=== PATIENT | female | born 2000 | race Caucasian/White ===

== ENCOUNTER 2023-03-10 21:43 | Observation (INO) | payer MEDICARE, OTHER ==
[~2023-03-10] VITALS: Ht 165.1 cm; Wt 95.0 kg
[2023-03-10] MEDS ORDERED: SEROQUEL100 MG PO (22:00)
[2023-03-10] MEDS ORDERED: ZIPRASIDONE HCL20 M1 PO (22:01)
[2023-03-10] MEDS ORDERED: FOLI1 PO (22:01)
[2023-03-10 22:17] LABS: BASOPHILS ABSOLUTE AUTO 0.06 K/mm3 (0.00-0.23); BASOPHILS PERCENT AUTO 1 % (0-2); EOSINOPHILS ABSOLUTE AUTO 0.12 K/mm3 (0.00-0.68); EOSINOPHILS PERCENT AUTO 1 % (0-6); Hematocrit 42.5 % (33.0-51.0); Hemoglobin 13.9 g/dL (11.5-16.0); IMMATURE GRAN ABSOLUTE AUTO 0.05 K/mm3 (0.00-0.10); IMMATURE GRAN PERCENT AUTO 1 % (0-1); LYMPHOCYTES ABSOLUTE AUTO 2.53 K/mm3 (0.84-5.20); LYMPHOCYTES PERCENT AUTO 25 % (21-46); MONOCYTES ABSOLUTE AUTO 0.67 K/mm3 (0.16-1.47); MONOCYTES PERCENT AUTO 7 % (4-13); Mean Corpuscular HGB 31.2 pg (26.0-34.0); Mean Corpuscular HGB Conc 32.7 g/dL (31.5-36.5); Mean Corpuscular Volume 96 fL (80-100); Mean Platelet Volume 10.1 fL (9.1-12.4); NEUTROPHILS ABSOLUTE AUTO 6.67 K/mm3 (1.96-9.15); NEUTROPHILS PERCENT AUTO 66 % (41-73); Platelet Count 197 K/mm3 (150-400); RDW Coefficient Variation 11.5 % (11.7-14.2); RDW Standard Deviation 40.1 fL (35.1-46.3); Red Blood Cell Count 4.45 M/mm3 (3.80-5.20)
[2023-03-10 22:42] LABS: Ethanol (Alcohol), Blood, Med <3 mg/dL; Salicylate <1.7 mg/dL (2.8-20.0); Thyroxine (T4) 8.9 ug/dL (4.8-13.9)
[2023-03-10 22:46] LABS: Alanine Aminotransfer (ALT/SGP 21 U/L (12-78); Albumin, Blood 3.6 g/dL (3.4-5.0); Albumin/Globulin Ratio 0.9 (0.8-1.8); Alk Phos 115 U/L (50-136); Anion Gap 5 mmol/L (6-16); Aspartate Aminotrans (AST/SGOT 25 U/L (12-37); Bilirubin, Total 0.2 mg/dL (0.1-1.0); Blood Urea Nitrogen 21 mg/dL (8-24); Bun/Creatinine Ratio 25.5 (12.0-20.0); CO2, Blood 25 mmol/L (21-32); Calcium, Blood 9.1 mg/dL (8.5-10.1); Chloride, Blood 108 mmol/L (98-108); Creatinine, Blood 0.83 mg/dL (0.40-1.00); Globulin, Blood 4.1 g/dL (2.2-4.0); Glomerular Filtration Rate 103 (60-); Glucose, Blood 107 mg/dL (70-99); Potassium, Blood 4.2 mmol/L (3.5-5.5); Sodium, Blood 138 mmol/L (136-145); Total Protein, Blood 7.7 g/dL (6.4-8.2)
[2023-03-10 22:47] LABS: Acetaminophen, Random <2.0 ug/mL (10.0-30.0)
[2023-03-11] VITALS (20 sets, daily range): BP systolic 88–111; BP diastolic 57–71
[2023-03-11 02:25] LABS: Albumin, Blood 3.6 g/dL (3.4-5.0); Albumin/Globulin Ratio 0.9 (0.8-1.8); Bilirubin, Total 0.3 mg/dL (0.1-1.0); Bun/Creatinine Ratio 26.5 (12.0-20.0); Calcium, Blood 9.4 mg/dL (8.5-10.1); Creatinine, Blood 0.72 mg/dL (0.40-1.00); Globulin, Blood 4.1 g/dL (2.2-4.0); Potassium, Blood 4.7 mmol/L (3.5-5.5); Total Protein, Blood 7.7 g/dL (6.4-8.2)
[2023-03-11 04:34] LABS: BASOPHILS ABSOLUTE AUTO 0.03 K/mm3 (0.00-0.23); BASOPHILS PERCENT AUTO 0 % (0-2); EOSINOPHILS ABSOLUTE AUTO 0.14 K/mm3 (0.00-0.68); EOSINOPHILS PERCENT AUTO 2 % (0-6); Hemoglobin 13.8 g/dL (11.5-16.0); IMMATURE GRAN ABSOLUTE AUTO 0.05 K/mm3 (0.00-0.10); IMMATURE GRAN PERCENT AUTO 1 % (0-1); LYMPHOCYTES ABSOLUTE AUTO 2.57 K/mm3 (0.84-5.20); LYMPHOCYTES PERCENT AUTO 30 % (21-46); MONOCYTES ABSOLUTE AUTO 0.57 K/mm3 (0.16-1.47); MONOCYTES PERCENT AUTO 7 % (4-13); Mean Corpuscular HGB 31.2 pg (26.0-34.0); Mean Corpuscular HGB Conc 33.7 g/dL (31.5-36.5); Mean Corpuscular Volume 93 fL (80-100); Mean Platelet Volume 10.5 fL (9.1-12.4); NEUTROPHILS ABSOLUTE AUTO 5.15 K/mm3 (1.96-9.15); NEUTROPHILS PERCENT AUTO 61 % (41-73); Platelet Count 209 K/mm3 (150-400); RDW Coefficient Variation 11.5 % (11.7-14.2); RDW Standard Deviation 39.3 fL (35.1-46.3); Red Blood Cell Count 4.43 M/mm3 (3.80-5.20); White Blood Cell Count 8.51 K/mm3 (4.00-11.30)
[2023-03-11 04:37] LABS: Base Excess Venous 0.3 mmol/L; Bicarbonate Venous 24.2 mmol/L (24.0-30.0); PCO2 Venous 47.2 mmHg (38-42); pH Blood Venous 7.35 (7.34-7.37)
[2023-03-11 04:53] LABS: Albumin, Blood 3.5 g/dL (3.4-5.0); Albumin/Globulin Ratio 0.9 (0.8-1.8); Bilirubin, Total 0.3 mg/dL (0.1-1.0); Bun/Creatinine Ratio 26.4 (12.0-20.0); Calcium, Blood 9.2 mg/dL (8.5-10.1); Creatinine, Blood 0.72 mg/dL (0.40-1.00); Total Protein, Blood 7.5 g/dL (6.4-8.2)
--- NOTE | 2023-03-11 08:14 | NUR ---
ADMIT PT ARRIVED TO ICU 3 AT 0745. PT RESTING WITH HER EYES CLOSED, BUT OPENS EYES AND RESPONDS SOFTLY WHEN ASKED QUESTIONS. CLOSES HER EYES AND GOES BACK TO SLEEP WHEN UNSTIMULATED. PT ORIENTED TO PERSON AND PLACE. ON CPAP FOR APNEIC EPISODES IN THE ED. IV FLUDIS INFUSING. 1:1 OBSERVATION FOR SAFETY.
--- NOTE | 2023-03-11 12:32 | NUR ---
REASSESSMENT PT HAS BEEN SLEEPING THIS MORNING UNLESS WOKEN UP. ALERT ENOUGH TO EAT LUNCH, NOTIFIED AND GAVE DIET ORDER. PSYCHIATRIST CAME AND PLACED PT ON HOLD. CIVIL RIGHTS READ TO PT. PT CHECKED BOX FOR [employer] SO THE NUMBER FOR THE LOSS PREVENTION AUDITOR PROVIDED. LUNGS REMAIN CLEAR. PT OFF CPAP SINCE GETTING UP TO USE THE RESTROOM. RA. SR, BP STABLE. PT'S STEPMOTHER CALLED AND WAS GIVEN UPDATE WITH PT'S CONSENT.
[2023-03-11 13:24] LABS: Bun/Creatinine Ratio 20.1 (12.0-20.0); Creatinine, Blood 0.8 mg/dL (0.40-1.00); Magnesium, Blood 1.7 mg/dL (1.6-2.4); Potassium, Blood 3.7 mmol/L (3.5-5.5)
--- NOTE | 2023-03-11 16:46 | NUR ---
SHIFT SUMMARY PT HAS CONTINUED TO SLEEP UNLESS WOKEN UP. THEY ATE LUNCH AND THEN WENT BACK TO SLEEP, NOW REQUIRING TACTILE STIMULI TO WAKE UP. RR REMAIN AROUND 18, SPO2 IN THE HIGH 90S ON RA. SR IN THE 80S, BUT HAS HAD A COUPLE FEW SECOND RUNS OF SVT IN THE 120S. BP STABLE WITH MAP ABOVE 65. LUNGS CLEAR. ELECTROLYTES REPORTED TO DR. BOOGIE AND REPLACEMENT ORDERED. PT ATE DOUBLE PORTIONS OF LUNCH BEFORE FALLING BACK ASLEEP THIS AFTERNOON. PT'S MOTHER CALLED AND WAS UPDATED. CONTINUING TO MONITOR.
--- NOTE | 2023-03-11 19:24 | NUR ---
ASSUMED CARE OF PT AT 1900 PT SLEEPING IN BED DURING BEDSIDE SHIFT REPORT. VITALS WNL FOR PT. BED IN LOW POSITION. 1:1 SITTER AT DOOR. SEE FULL ASSESSMENT FOR FURTHER INFORMATION.
--- NOTE | 2023-03-11 22:04 | NUR ---
SPOKE WITH PT FATHER ESPERANZA CALHOUN OVER THE PHONE. FATHER IS LOCATED IN [facility]. ESPERANZA IS GOING TO TRY TO MAKE IT TO VISIT PT TOMORROW 03/12/23.
[2023-03-12] VITALS (10 sets, daily range): BP systolic 95–124; BP diastolic 60–72
[2023-03-12 05:01] LABS: Calcium, Blood 8.7 mg/dL (8.5-10.1); Creatinine, Blood 0.83 mg/dL (0.40-1.00); Potassium, Blood 4.2 mmol/L (3.5-5.5)
--- NOTE | 2023-03-12 05:19 | NUR ---
SHIFT SUMMARY PT WAKENS WHEN SPOKEN TO BUT DOES NOT OPEN EYES UNTIL ASKED TO. USED TOILET WITH STAND BY ASSIST. STABLE ON FEET. CONTINUES SR WITHOUT ECTOPY NOTED. NS AT 75 MLS/HR THROUGHOUT SHIFT. NO APNEIC EPISODES ALL NIGHT WITHOUT CPAP. PT REFUSED CPAP OFFERED EARLIER IN SHIFT. 1:1 SITTER AT DOOR THIS SHIFT. BED IN LOW POSITION. MONITORING UNTIL REPORT GIVENT AM ABDIFATAH.
--- NOTE | 2023-03-12 18:37 | NUR ---
SUMMARY PT RESTING IN BED. DENIES SUICIDAL IDEATION TODAY. HAS BEEN APPROPRIATE AND COOPERATIVE WITH CARE. STILL HAS 1:1 SITTER FOR SAFETY. OOB AND STEADY ON FEET. NO ACUTE CHANGES.
[2023-03-13 00:44] VITALS: BP 124/76
--- NOTE | 2023-03-13 05:25 | NUR ---
SHIFT SUMMERY PT HAS BEEN AWAKE MOST OF THE NIGHT. HE HAS BEEN VERY TALKATIVE AND HAS WRITTEN SEVERAL NOTES TO VARIOUS PEOPLE. PT STATED THAT HE WANTED TO GO HOME. I EDUCATED PT ON THE ORDER FOR 2 MD HOLD AT THIS TIME. PT VERBALIZED UNDERSTANDING. PT HAS HAD 1:1 SITTER. PT HAS HAD NO ACUTE DISTRESS OR CHANGES OVERNIGHT, VS HAVE BEEN STABLE.
[2023-03-13 06:23] VITALS: BP 108/73
[2023-03-13 08:36] VITALS: BP 107/65
[2023-03-13 18:16] VITALS: BP 109/71
--- NOTE | 2023-03-13 18:41 | NUR ---
SUMMARY PT WAS AGITATED THIS AM ABOUT WANTING TO GO HOME AND WAS SUPPOSED TO BE GOING TO INPT PSYCH FACILITY. AFTER DR. MARTINEZ SAW PT HE DECIDED PT DOES NOT NEED INPT PSYCH AND WILL D/C HIM TOMORROW. AFTER THIS DECISION WAS MADE PT WAS COOPERATIVE WITH CARE AGAIN AND BEING KIND TO STAFF. NO ACUTE CHANGES THIS SHIFT. 1:1 SITTER AND HOLD CONTINUES UNTIL TOMORROW PER DR. MARTINEZ.
--- NOTE | 2023-03-13 19:00 | NUR ---
ASSUMED CARE OF PT AT 1900 PT RESTING IN BED DURING BEDSIDE SHIFT REPORT. VITALS WNL. BED IN LOW POSITION. CALL LIGHT WITHIN REACH. 1:1 SITTER AT DOOR.
[2023-03-13 19:10] VITALS: BP 113/77
--- NOTE | 2023-03-14 06:31 | NUR ---
SHIFT SUMMARY PT SLEPT THIS SHIFT WITH MINIMAL INTERUPTION. VITALS WNL. NO ACUTE CHANGES TO REPORT. MONITORING UNTIL REPORT GIVEN TO AM RN.
[2023-03-14 08:59] VITALS: BP 107/69
[2023-03-14] MEDS ORDERED: LAMICTAL25 M1 PO (11:45)
--- NOTE | 2023-03-14 12:29 | NUR ---
DISCHARGE DISCHARGE MEDICATIONS REVIEWED WITH PATIENT AND INSTRUCTIONS/FOLLOW UP APPOINTMENTS. ALL QUESTIONS ANSWERED AND PIV REMOVED. DISCHARGE PACKET GIVEN TO PATIENT. NO EVENTS DURING SHIFT. VSS.
[2023-03-14 12:31] VITALS: BP 118/78
== END 2023-03-14 13:00 | disposition home or self-care (01) ==
LOC: ER 21:43 → ERHOLD 21:44 → ICUE 21:44 → ER 03-11 01:55 → ERHOLD 03-11 01:55 → ICUE 03-11 05:00
PROVIDERS: Emergency Medicine; Internal Medicine; ADMIT Internal Medicine
DX: F32.9 Major depressive disorder, single episode, unspecified (principal); T43.592A Poisoning by other antipsychotics and neuroleptics, intentional self-harm, initial encounter; R45.851 Suicidal ideations; Y92.9 Unspecified place or not applicable
CPT/HCPCS: 36415; 80048; 80053; 82803; 83735; 84436; 84443; 84703; 85025; 93005; 93010; 94660; 94762; 96360; 96361; 96365; 96372; 99285-25; A9270; G0378; G0480; J1650; J3475; J7030